=== PATIENT | male | born 1970 | race Caucasian/White ===

== ENCOUNTER → 2023-08-20 06:20 | Day surgery (SDC) | payer OTHER, SELFPAY ==
[2023-08-20 07:16] LABS: Glucose - Point of Care 137 mg/dl (70-99)
== END ==
LOC: GI 06:20
PROVIDERS: ATTENDING PHYSICIAN Surgery
DX: Z12.11 Encounter for screening for malignant neoplasm of colon (principal); K63.5 Polyp of colon; K52.9 Noninfective gastroenteritis and colitis, unspecified; K57.30 Diverticulosis of large intestine without perforation or abscess without bleeding
CPT/HCPCS: 45380; 88305; 82962